=== PATIENT | female | born 2005 | race Caucasian/White ===

== ENCOUNTER 2024-01-13 13:48 | Emergency (ER) | payer MEDICAID ==
[~2024-01-13] VITALS: Ht 162.6 cm; Wt 77.0 kg
[2024-01-13 13:59] VITALS: TEMP 99.5; O2SAT 100
[2024-01-13] MEDS: ACETAMINOPHEN 500MG TABLET PO ONE (14:37)
[2024-01-13] MEDS: ONDANSETRON 4MG ODT PO ONE (14:37)
[2024-01-13 15:20] LABS: BASOPHILS % 0.3 % (0.0-2.0); EOSINOPHILS % 1.3 % (0.0-5.0); HEMOGLOBIN. 13.7 g/dL (12.0-16.0); LYMPHOCYTES % 16.4 % (20.0-50.0); MEAN CORPUSCULAR HEMOGLOBIN 29.1 pg (28.0-32.0); MEAN CORPUSCULAR HGB CONC 32.8 g/dL (31.0-37.0); MEAN CORPUSCULAR VOLUME 88.8 fL (81.0-99.0); MEAN PLATELET VOLUME 8.9 fl (7.4-10.4); PLATELET 272 x1000/uL (130-400); RED BLOOD CELL COUNT 4.73 mill/uL (4.2-5.4); RED CELL DISTRIBUTION WIDTH 15.6 % (11.6-14.6); WHITE BLOOD COUNT 7.1 x1000/uL (4.5-11.0)
[2024-01-13 15:39] LABS: CHLORIDE 103 mEq/L (98-107); POTASSIUM 3.6 mEq/L (3.5-5.1); SODIUM 135 mEq/L (136-145)
[2024-01-13 15:40] LABS: CALCIUM 9.1 mg/dL (8.7-10.4); CARBON DIOXIDE 27 mEq/L (21-32)
[2024-01-13 15:45] LABS: CREATININE 0.6 mg/dL (0.6-1.0); GLUCOSE 93 mg/dL (70-105); UREA NITROGEN BLOOD 6 mg/dL (9-23)
[2024-01-13 16:03] LABS: B-HCG QUANTITATIVE 2 mIU/mL (<3)
[2024-01-13 17:01] VITALS: BP 133/74; PULSE 95; RESP 16; O2SAT 98
== END 2024-01-13 17:05 | disposition home or self-care (01) ==
LOC: ER 13:54
DX: U07.1 COVID-19 (principal); B34.9 Viral infection, unspecified; J45.909 Unspecified asthma, uncomplicated
CPT/HCPCS: 99283; 87426; 80048; 81025; 84702; 85025; 36415; Q0162

== ENCOUNTER 2024-10-07 13:07 | Emergency (ER) | payer MEDICAID ==
[~2024-10-07] VITALS: Ht 167.6 cm; Wt 80.0 kg
[2024-10-07 13:08] VITALS: BP 108/64; TEMP 37.2; O2SAT 98
[2024-10-07 13:10] VITALS: RESP 14; O2SAT 99
[2024-10-07] MEDS ORDERED: PYRIDOXINE 100 MG/ML 1ML IV ONE (13:45)
[2024-10-07] MEDS: METOCLOPRAMIDE HCL 10MG/2ML VIAL IV ONE (13:45)
[2024-10-07] MEDS: DEXT 5%/0.9% NACL 1,000 ML IV ONE (13:45)
[2024-10-07] MEDS: PYRIDOXINE HCL 50MG TABLET PO NR (13:45)
[2024-10-07] MEDS: METOCLOPRAMIDE HCL 10MG/2ML VIAL IV NR (13:45)
[2024-10-07 14:01] LABS: BASOPHILS % 0.4 % (0.0-2.0); EOSINOPHILS % 0.6 % (0.0-5.0); HEMATOCRIT. 42.9 % (36.0-48.0); HEMOGLOBIN. 14.5 g/dL (12.0-16.0); LYMPHOCYTES % 24.3 % (20.0-50.0); MEAN CORPUSCULAR HEMOGLOBIN 32.2 pg (28.0-32.0); MEAN CORPUSCULAR HGB CONC 33.8 g/dL (31.0-37.0); MEAN CORPUSCULAR VOLUME 95.2 fL (81.0-99.0); MONOCYTES % 4.4 % (2.0-8.0); NEUTROPHILS % 70.3 % (40.0-76.0); PLATELET 238 x1000/uL (130-400); RED BLOOD CELL COUNT 4.51 mill/uL (4.2-5.4); RED CELL DISTRIBUTION WIDTH 13.7 % (11.6-14.6); WHITE BLOOD COUNT 8.3 x1000/uL (4.5-11.0)
[2024-10-07 14:09] LABS: CHLORIDE 100 mEq/L (98-107); POTASSIUM 3.5 mEq/L (3.5-5.1); SODIUM 135 mEq/L (136-145)
[2024-10-07 14:10] LABS: CALCIUM 8.9 mg/dL (8.7-10.4); CARBON DIOXIDE 26 mEq/L (21-32)
[2024-10-07 14:15] LABS: CREATININE 0.6 mg/dL (0.6-1.0); GLUCOSE 90 mg/dL (70-105)
[2024-10-07 14:16] LABS: UREA NITROGEN BLOOD 6 mg/dL (9-23)
[2024-10-07 14:17] LABS: ALANINE AMINOTRANSFERASE 20 IU/L (10-49); ALBUMIN 4.3 g/dL (3.2-4.8); ASPARTATE AMINOTRANSFERASE 15 IU/L (<34)
[2024-10-07 14:18] LABS: BILIRUBIN DIRECT 0.1 mg/dL (<=3.0); BILIRUBIN TOTAL 0.5 mg/dL (0.1-1.0); PROTEIN TOTAL 7.3 g/dL (6.0-8.3)
[2024-10-07 14:19] LABS: B-HCG QUANTITATIVE > 1000 mIU/mL (<6)
[2024-10-07 14:47] LABS: BETA HYDROXYBUTYRATE 0.3 mMol/L (0.0-0.3)
[2024-10-07 16:43] VITALS: PULSE 88
[2024-10-07] MEDS ORDERED: DOXY1TAB3 MT (16:48)
== END 2024-10-07 17:03 | disposition home or self-care (01) ==
LOC: ER 13:07
DX: O26.891 Other specified pregnancy related conditions, first trimester (principal); O21.9 Vomiting of pregnancy, unspecified; R10.31 Right lower quadrant pain; R10.2 Pelvic and perineal pain; J45.909 Unspecified asthma, uncomplicated; Z3A.12 12 weeks gestation of pregnancy
CPT/HCPCS: 80076; 80048; 82010; 84702; 83690; 85025; 36415; 76801; 76817; 74181; 96361; 96374; 99285; J2765; J7042; Z7610 ×3; J3415